=== PATIENT | male | born 1980 | race Caucasian/White ===

== ENCOUNTER 2017-02-14 08:18 | Outpatient (CLI) | payer OTHER ==
--- NOTE | 2017-02-14 16:56 | MRI Report ---
EXAM: MRI LUMBAR SPINE WITHOUT CONTRAST EXAM DATE: 02/14/2017 09:45 AM. CLINICAL HISTORY: LOW BACK PAIN. COMPARISON: None. TECHNIQUE: Multiplanar, multisequence T1-weighted and fluid-sensitive sequences of the lumbar spine f rom T12 to S1 without contrast. Other: None. FINDINGS: Spinal Cord: The conus terminates at L1. No signal abnormality in the visualized spinal cord. Alignment: Normal. No scoliosis or spondylolisthesis. Bone Marrow: Five [id number] lumbar vertebral bodies are assumed. No gross fractures or bone les ions. No bone marrow edema. Disk Levels/Facets: T12-L1: Unremarkable. L1-L2: Unremarkable. L2-L3: Unremarkable. L3-L4: Mild bilateral facet arthropathy. L4-L5: Mild to moderate bilateral degenerative facet arthropathy. L5-S1: Mild left-sided degenerative facet arthropathy. Musculature: Normal. No edema or fatty atrophy. Other: Unremarkable. IMPRESSION: 1. Mild lower lumbar degenerative facet arthropathy, more pronounced at the L4-L5 level. 2. No lumbar central canal or foraminal stenosis. Comment: The following findings are so common in adults without low back pain that while we report th eir presence, they must be interpreted with caution and in the context of the clinical situation. (Re marika Parekhk et al, Spine 2001) Prevalence of findings in patients without low back pain: Disk degeneration (any evidence): 92% Disk desiccation/T2 signal loss: 83% Disk height loss: 56% Disk bulge: 64% Disk protrusion: 32% Annular tear/high intensity zone: 38% [facility] Referring Provider Line: [phone] SITE ID: [id number]
--- NOTE | 2017-02-16 09:23 | MRI Report ---
EXAM: MRI THORACIC SPINE WITHOUT CONTRAST EXAM DATE: 02/14/2017 09:00 a.m. CLINICAL HISTORY: Constant mid thoracic pain. COMPARISONS: Lumbar MRI performed the same date. TECHNIQUE: Multiplanar, multisequence T1-weighted and fluid-sensitive sequences of the thoracic spine from C7 to L1 without contrast. Other: None. FINDINGS: Spinal Cord: No signal abnormality in the visualized spinal cord. Alignment: Normal alignment. No spondylolisthesis. Bone Marrow: No gross fractures or bone lesion. No bone marrow edema. Disk Levels/Facets: C7-T1: Unremarkable. T1-T2: Unremarkable. T2-T3: Unremarkable. T3-T4: Small broad-based central disk protrusion and moderate right-sided degenerative facet arthropa thy. No stenosis. T4-T5: Unremarkable. T5-T6: Unremarkable. T6-T7: Unremarkable. T7-T8: Unremarkable. T8-T9: Unremarkable. T9-T10: Unremarkable. T10-T11: Unremarkable. T11-T12: Unremarkable. T12-L1: Unremarkable. Musculature: Normal. No edema or fatty atrophy. Other: The visualized lungs, mediastinum, and abdominal cavity are unremarkable. IMPRESSION: 1. Tiny disk protrusion and moderate left-sided facet arthropathy at the T3-T4 level. [facility] Referring Provider Line: [phone] SITE ID: [id number]
== END 2017-02-14 08:19 | disposition home or self-care (01) ==
LOC: DI 08:18
PROVIDERS: ATTEND Student in an Organized Health Care Education/Training Program
DX: M51.24 Other intervertebral disc displacement, thoracic region (principal); M47.9 Spondylosis, unspecified
CPT/HCPCS: 72146; 72148

== ENCOUNTER 2021-08-01 10:01 | Outpatient (CLI) | payer OTHER ==
[2021-08-01 10:42] VITALS: BP 134/73
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
== END 2021-08-01 10:02 | disposition home or self-care (01) ==
LOC: SC 10:01
PROVIDERS: ATTEND Nurse Practitioner Family
DX: R06.83 Snoring (principal); R06.81 Apnea, not elsewhere classified; G47.8 Other sleep disorders; R51.9 Headache, unspecified; R41.89 Other symptoms and signs involving cognitive functions and awareness; G47.10 Hypersomnia, unspecified; E66.9 Obesity, unspecified; Z68.31 Body mass index [BMI] 31.0-31.9, adult
CPT/HCPCS: 99203; 99212

== ENCOUNTER 2021-08-09 08:22 | Outpatient (CLI) | payer OTHER | END 2021-08-09 08:23 | disposition home or self-care (01) | LOC: SC 08:22 | PROVIDERS: ATTEND Nurse Practitioner Family | DX: G47.33 Obstructive sleep apnea (adult) (pediatric) (principal) | CPT/HCPCS: 95806 ==

== ENCOUNTER 2021-08-21 16:17 | Outpatient (CLI) | payer OTHER ==
--- NOTE | 2021-08-21 17:08 | SLEEP CARE CONSULTATION ---
Information from patient questionnaire entered by Cecilia Becker MA. I have reviewed and concur with the information entered by Cecilia Becker MA. This document represents the service I personally performed and the decisions made by , Cassie Saez ARNP. History of Present Illness Service Date and Time: 08/21/2021 1617 Initial [place] Sleepiness Scale score: 20 (2021) Current [place] Sleepiness Scale score: 17 (08/2021) Additional HPI information: CECE GARCIA returns for follow up and results of the recently performed home sleep study. I explained the pathophysiology behind obstructive sleep apnea. We then spent quite a bit of time discussing different treatment options. For mild obstructive sleep apnea, surgery and oral appliance are alternatives to nasal CPAP therapy but in moderate or severe cases, nasal CPAP is the most effective and reliable treatment. Because apnea is primarily in supine position, then positional management therapy could be effective. Methods discussed such as positioning with pillows, using a T-shirt with tennis balls in the back, and shown commercial products that have a pillow format on back to prevent supine sleep. I reviewed the impact of weight changes on sleep apnea and strongly recommended losing weight. After some discussion, the patient opted to go with the nasal CPAP therapy. Nasal autoCPAP set at 4-15 cmH20 will be ordered with rationale explained. A manual titration study will be ordered if unable to find optimal pressure with office adjustments. I explained how CPAP machine works and what to expect when using the machine. Using CPAP every night in order to get used to it was emphasized. Patient advised to put CPAP mask on before getting into bed so as not to fall asleep without CPAP. To assist acclimation to CPAP use, it could also be used for a short time during day while reading or watching TV. The patient was instructed to call the CPAP supplier to discuss any mechanical problem that may occur. If the mask given is uncomfortable or is difficult to keep on through the night even with adjustment, contact the CPAP supplier as many will replace with another mask style if notified before 30 days. If snoring or perceives is not getting enough air or too much air from the machine, notify this office. [facility] patient education PAP tips reviewed and given to patient. Patient does not drink alcohol. Patient was cautioned about risks of drowsy driving until sleepiness symptoms resolve. Sleep Study - Results Type of Sleep Study: Home sleep study (F/U HOME STUDY) Prior sleep studies: No Polysomnography/Home Sleep Study results: Physician Impression: The quality of the study is good. The length of the study is adequate (> 240 minutes). Please also see the tabulated and graphic data. 1. Obstructive Sleep Apnea-Hypopnea (ICD-10 G47.33), mild, with an AHI of 5.1/hr and frantz SaO2 of 91%. During the study, the patient had 16 apneas (16 obstructive, 0 central, 0 mixed) and 24 hypopneas. The longest episode lasted 79.0 seconds. The patient did not sleep supine during this study. Allergies and Home Medications Home medication list reviewed: Yes (no changes) Review of Systems Review of systems same as previous: Yes (no changes) Physical Exam Vital signs obtained and entered by: ANDREWS STILL Blood Pressure: 128/79 (RIGHT, PULSE 86, RESP 16) Cuff size: wrist Heart Rate: 90 O2 Saturation: 96 (PAPER) Height: 5 ft 11 in Weight: 210 lb (W CLOTHES) Body Mass Index: 29.2 BMI Classification: Overweight Impression and Plan 1. Obstructive Sleep Apnea-Hypopnea Syndrome, mild, with lowest oxygen saturation of 91%. Obviously this is the cause of the patients symptoms of unrefreshed sleep, and excessive daytime sleepiness. Positive pressure therapy could benefit anxiety and mood disorder (PTSD). As mentioned above, the patient will be started on nasal autoCPAP therapy with pressure set at 4-15 cmH2O. A manual titration study will be completed if unable to find optimal treatment pressure with office adjustments. Compliance guidelines also reviewed. A copy of compliance guidelines will be given for reference at check out. * Nasal auto CPAP therapy, pressure at 4-15 cm H2O. * Attempt to lose weight. * Avoid alcohol consumption near bedtime. * Avoid supine sleep until using CPAP. * The patient is again cautioned about driving until sleepiness completely resolves. * Return one month after CPAP obtained. I will assess response to therapy and compliance at that time. Counseling Topics: Weight loss health impact Visit Type: In Office Time Spent with Patient (minutes): 20 Provider Statement: I spent 100% of the Face to Face Visit with the patient with greater than 50% spent counseling the patient and coordination of care.
[2021-08-21 17:09] VITALS: BP 128/79
== END 2021-08-21 16:18 | disposition home or self-care (01) ==
LOC: SC 16:17
PROVIDERS: ATTEND Nurse Practitioner Family
DX: G47.33 Obstructive sleep apnea (adult) (pediatric) (principal); E66.3 Overweight; Z68.29 Body mass index [BMI] 29.0-29.9, adult
CPT/HCPCS: 99212; 99213

== ENCOUNTER 2021-10-23 10:09 | Outpatient (CLI) | payer OTHER ==
[2021-10-23 11:07] VITALS: BP 125/73
--- NOTE | 2021-10-23 11:07 | SLEEP CARE CONSULTATION ---
Information from patient questionnaire entered by Cecilia Becker MA. I have reviewed and concur with the information entered by Cecilia Becker MA. This document represents the service I personally performed and the decisions made by , Cassie Saez ARNP. History of Present Illness Service Date and Time: 10/23/2021 1009 Previous diagnosis: Mild, Obstructive Sleep Apnea-Hypopnea Syndrome AHI: 5.1 (in 2021) Reason for follow up: first compliance (SET UP DATE 09/17/21, RESMED, ) Equipment type: CPAP Equipment obtained from: Other ([facility]; got inital supplies) Mask style: Full face Mask brand: Resmed (AirFit F20) Backup mask available: Yes (other mask) Last cushion change: 1 month Prior sleep studies: No Type of Sleep Study: Home sleep study (F/U HOME STUDY) HPI additional information: CECE GARCIA was diagnosed to have mild, AHI 5.1, obstructive sleep apnea- hypopnea syndrome and returned today for CPAP therapy first compliance (ResMed) follow-up. Sleep Study - Results Type of Sleep Study: Home sleep study (F/U HOME STUDY) Prior sleep studies: No CPAP Compliance Data - Data Reviewed with Patient Average duration of nightly device use: 7 HOURS 2 MINUTES Compliance rate %: 90 (30 days) Current pressure setting (cmH2O): 5-15 (median 6.5, avg 8.8, max 10.2) Average residual AHI: 0.3 Central apnea: .1 Obstructive apnea: .2 Average large leak: 8.8 Subjective Patient concerns: reports: nasal congestion (COULD BE ALLERGIES,). denies: aerophagia, mask discomfort, air blowing in eyes, mask leak noise, condensation in mask/hose, dry mouth, nose, throat, epistaxis, other Observed to snore while using device: No Current pressure setting perceived as: comfortable On therapy, patient: reports: sleeping better, awakening more refreshed, being more awake and alert during the day, more rested overall. denies: drowsiness while driving Initial [place] Sleepiness Scale score: 20 (2021) Current [place] Sleepiness Scale score: 2 (10/2021) Allergies and Home Medications Home medication list reviewed: Yes (no changes) Review of Systems Review of systems same as previous: Yes (no changes) Physical Exam Vital signs obtained and entered by: ANDREWS STILL Blood Pressure: 125/73 (RIGHT, PULSE 82, RESP 20, ) Cuff size: wrist Heart Rate: 76 O2 Saturation: 97 (PAPER MASK) Height: 5 ft 11 in Weight: 238 lb (CLOTHES) Weight change since last visit: TRYING TO LOOSE, BACK TO THE GYM, Body Mass Index: 33.2 BMI Classification: Obese Impression and Plan 1. Obstructive Sleep Apnea-Hypopnea Syndrome, mild, with good treatment compliance and good apnea control. On CPAP therapy, the patient has better sleep quality and is more rested overall. He states he has more energy during the day and a lot less stress around going to bed. His is able to sleep better too because he is not snoring and keeping her awake. Patient's apnea severity and rationale for treatment to reduce apnea, improve sleep quality and reduce cardiovascular and cerebrovascular events was reviewed. I also reviewed the benefit of consistent device use of CPAP for anxiety and mood disorder (PTSD). Patient denies problems with oral dryness, epistaxis, skin irritation or aerophagia. He has had some nasal congestion due to allergies. Nasal congestion can be reduced with increasing the CPAP humidity. The heated hose can be adjusted higher if condensation with higher humidity setting. Saline nasal spray sample can be obtained OTC and used prior to CPAP to clear nasal secretions and wash off any nasal allergens to facilitate nasal breathing. He voiced understanding. 2. Obesity, unspecified. Patient has gained weight. Currently patients BMI is 33.2. Obesity increases the risk of apnea, CPAP pressure requirements and overall health risks especially cardiovascular and diabetes. Thus patient is advised to lose weight. Weight loss can be done with reducing portion size, reducing refined foods and balancing content with vegetables, fruit and whole grain foods. In addition, patient encouraged to get regular exercise. * Change auto CPAP pressure to 6-10 cmH2O * Notify me if snoring with mask or feeling that the pressure is too much or too little * Attempt to lose weight * Call this office if any problems using CPAP * Return for follow up in 1-2 months, or sooner if concerns arise Counseling Topics: Weight loss health impact Visit Type: In Office Location of Provider: Office Time Spent with Patient (minutes): 20 Provider Statement: I spent 100% of the Face to Face Visit with the patient with greater than 50% spent counseling the patient and coordination of care.
== END 2021-10-23 10:10 | disposition home or self-care (01) ==
LOC: SC 10:09
PROVIDERS: ATTEND Nurse Practitioner Family
DX: G47.33 Obstructive sleep apnea (adult) (pediatric) (principal); E66.9 Obesity, unspecified; Z68.33 Body mass index [BMI] 33.0-33.9, adult
CPT/HCPCS: 99212; 99213

== ENCOUNTER 2022-04-08 10:56 | Outpatient (CLI) | payer OTHER ==
[2022-04-08 11:29] VITALS: BP 130/88
--- NOTE | 2022-04-08 11:29 | SLEEP CARE CONSULTATION ---
Information from patient questionnaire entered by Brenda Alba. I have reviewed and concur with the information entered by Brenda Alba. This document represents the service I personally performed and the decisions made by me, Cassie Saez ARNP. History of Present Illness Service Date and Time: 04/08/2022 1056 Previous diagnosis: Mild, Obstructive Sleep Apnea-Hypopnea Syndrome AHI: 5.1 Reason for follow up: three month (LAST SEEN 12-27) Equipment type: CPAP Equipment obtained from: Other ([facility]; getting supplies as needed) Mask style: Full face Mask brand: Resmed (F20) Backup mask available: Yes (other mask) Last cushion change: 2 days Prior sleep studies: No Type of Sleep Study: Home sleep study (F/U HOME STUDY) HPI additional information: CECE GARCIA was diagnosed to have mild, AHI 5.1, obstructive sleep apnea- hypopnea syndrome and returned today for CPAP therapy three month follow-up. Sleep Study - Results Type of Sleep Study: Home sleep study (F/U HOME STUDY) Prior sleep studies: No CPAP Compliance Data - Data Reviewed with Patient Average duration of nightly device use: 7 HRS, 25 MIN Compliance rate %: 97 (01/04/2022-04/03/2022; 89/90 days used) Current pressure setting (cmH2O): 6-10 Average residual AHI: 0.2 Subjective Patient concerns: denies: aerophagia, mask discomfort, air blowing in eyes, mask leak noise, condensation in mask/hose, nasal congestion, dry mouth, nose, throat, epistaxis Observed to snore while using device: No Current pressure setting perceived as: comfortable On therapy, patient: reports: sleeping better, awakening more refreshed, being more awake and alert during the day, more rested overall. denies: drowsiness while driving Initial [place] Sleepiness Scale score: 20 (2021) Current [place] Sleepiness Scale score: 2 (04/08/22) Allergies and Home Medications Drug allergies reviewed: Yes (NKDA) Home medication list reviewed: Yes (no changes) Review of Systems Review of systems same as previous: Yes (no changes) Physical Exam Vital signs obtained and entered by: BRENDA Posada MA Blood Pressure: 130/88 (left arm) Cuff size: regular Heart Rate: 89 O2 Saturation: 96 Height: 5 ft 11 in Weight: 246 lb 3.2 oz Weight change since last visit: 36 lb gain Body Mass Index: 34.3 BMI Classification: Obese Impression and Plan 1. Obstructive Sleep Apnea-Hypopnea Syndrome, mild, with good treatment compliance and good apnea control. On CPAP therapy, the patient has better sleep quality and is more rested overall. Patient is using a ResMed F 20 fullface mask. He states sometimes he does get the tubing wrapped around his neck. He would like to try one with the hose at the top of his head. I advised him that he could do that when he is next eligible for headgear replacement or he could purchase one online to try before he orders one through his DME. He voiced understanding and agreement. Patient has significant improvement of their sleep apnea and are satisfied with current CPAP therapy. Patient denies problems with oral dryness, nasal congestion, epistaxis, skin irritation or aerophagia. Patient's apnea severity and rationale for treatment to reduce apnea, improve sleep quality and reduce cardiovascular and cerebrovascular events was reviewed. I also reviewed the benefit of consistent device use of CPAP for anxiety and PTSD. 2. Obesity, unspecified. Currently patients BMI is 34.3. Patient has gained some weight. Obesity increases the risk of apnea, CPAP pressure requirements and overall health risks especially cardiovascular and diabetes. Thus patient is advised to lose weight. Weight loss can be done with reducing portion size, reducing refined foods and balancing content with vegetables, fruit and whole grain foods. In addition, patient encouraged to get regular exercise. * Continue auto CPAP pressure at 6-10 cmH2O * Notify me if snoring with mask or feeling that the pressure is too much or too little * Attempt to lose weight * Call this office if any problems using CPAP * Return for follow up in 1 year, or sooner if concerns arise Counseling Topics: Spare mask, Weight loss health impact Visit Type: In Office Time Spent with Patient (minutes): 20 Provider Statement: I spent 100% of the Face to Face Visit with the patient with greater than 50% spent counseling the patient and coordination of care.
== END 2022-04-08 10:57 | disposition home or self-care (01) ==
LOC: SC 10:56
PROVIDERS: ATTEND Nurse Practitioner Family
DX: G47.33 Obstructive sleep apnea (adult) (pediatric) (principal); E66.9 Obesity, unspecified; Z68.34 Body mass index [BMI] 34.0-34.9, adult
CPT/HCPCS: 99212; 99213

== ENCOUNTER 2023-03-14 14:49 | Emergency (ER) | payer OTHER ==
[2023-03-14] MEDS ORDERED: lidocaine 1% 20 ML MDV SUBQ ONE (16:03)
--- NOTE | 2023-03-14 17:20 | CT Report ---
PROCEDURE: HEAD WO INDICATIONS: concussion, headache, nausea memory loss TECHNIQUE: Noncontrast 4.5 mm thick angled axial sections acquired from the foramen magnum to the vertex. For r adiation dose reduction, the following was used: automated exposure control, adjustment of mA and/or kV according to patient size. COMPARISON: None. FINDINGS: CSF spaces: Basal cisterns are patent. No extra-axial fluid collections. Ventricles are normal in size and shape. Brain: No midline shift. No intracranial masses or hemorrhage. Salazar-white matter interface is norm al. Skull and face: Calvarium and visualized facial bones are intact, without suspicious lesions. Sinuses: Mucosal thickening left maxillary sinus without air-fluid level IMPRESSION: No acute intracranial pathology. Reviewed by: Marty Hobbs MD on 03/14/2023 5:19 PM PDT Approved by: Marty Hobbs MD on 03/14/2023 5:19 PM PDT Station ID: [id number]
--- NOTE | 2023-03-14 18:09 | ED Physician Documentation ---
PD HPI HEAD INJURY - Stated complaint Stated Complaint: HEAD INJ - Chief complaint Chief Complaint: Laceration - History obtained from History obtained from: Patient, Family - History of Present Illness Mechanism of head injury: Blow Where head injury occurred: Home Timing - onset: Today Location of injury: Front, Top Quality of pain: Pain Associated symptoms: Nausea / vomiting (transient). 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 He somehow ended up striking himself in the top of his head he is uncertain if he had any loss of consciousness. He is not sure what he did with the post pizza delivery driver. He has lacerations to his scalp and comes into the emergency department for evaluation and treatment. He did have some transient nausea and he has had some more nausea when he went to stand up. He has a mild headache he has not had difficulty concentrating or dizziness. Review of Systems Constitutional: denies: Fever Eyes: denies: Decreased vision Ears: denies: Ear pain Nose: denies: Congestion Throat: denies: Sore throat Respiratory: denies: Cough GI: reports: Nausea. denies: Vomiting : denies: Dysuria, Frequency PD PAST MEDICAL HISTORY - Present Medications Home Medications: Ambulatory Orders Medication Instructions Recorded Confirmed Sertraline HCl 100 mg PO DAILY 03/14/23 03/14/23 - Allergies Allergies/Adverse Reactions: Allergies Allergy/AdvReac Type Severity Reaction Status Date / Time No Known Drug Allergies Allergy Verified 03/14/23 15:00 PD ED PE NORMAL - Vitals Vital signs reviewed: Yes (hypertensive ) - General General: Alert and oriented X 3, No acute distress, Well developed/nourished - HEENT HEENT: PERRL, EOMI, Other (2 lacerations to the anterior middle scalp. One is 4.5cm deeper and without FB. The other is more superficial 3.5cm and without fb. ) - Neck Neck: Supple, no meningeal sign, No bony TTP - Respiratory Respiratory: No respiratory distress - Derm Derm: Normal color, Warm and dry, No rash - Extremities Extremities: No deformity, No edema - Neuro Neuro: Alert and oriented X 3, continuous improvement analyst 2-12 intact, No motor deficit, No sensory deficit, Normal speech Eye Opening: Spontaneous Motor: Obeys Commands Verbal: Oriented GCS Score: 15 - Psych Psych: Normal mood, Normal affect Results - Vitals Vitals: Vital Signs - 24 hr 03/14/23 03/14/23 03/14/23 15:02 15:58 18:23 Temperature 36.6 C 36.8 C 36.0 C L Heart Rate 85 86 74 Respiratory 16 18 16 Rate Blood Pressure 161/83 H 170/80 H 138/83 H O2 Saturation 97 98 94 Oxygen O2 Source Room air - Rads (name of study) CT head without Relevant Findings:: Prelim report reviewed (Impression: No acute intracranial pathology.), EMP independent interpretation of test, See rad report Procedures - Laceration (location) Scalp Length in cm: 8 Wound type: Linear, Into subcut fat, Clean Neurovascular status: Sensory intact, Motor intact, Vascular intact Anesthesia: Lidocaine 1% Wound preparation: Hibiclens, Irrigated copiously NS, Wound explored, To the base Skin layer closure: [place] Other: Patient tolerated well, No complications, Neurovascular intact, Dressing applied, Tetanus UTD PD Medical Decision Making - ED course Complexity details: considered differential, d/w patient, d/w family ED course: Ricci Fox is a 42-year-old male who lacerated his scalp with a post pizza delivery driver and he had some transient nausea following this as well as headache. He has an unknown loss of consciousness. A CT scan of the head was obtained. This was unremarkable. His wounds were then attended to with lidocaine and cleaning and stapling. Patient tolerated this well. Departure - Departure Disposition: 01 Home, Self Care Clinical Impression: Scalp laceration Qualifiers: Encounter type: initial encounter Qualified Code(s): S01.01XA - Laceration without foreign body of scalp, initial encounter Concussion Qualifiers: Encounter type: initial encounter Loss of consciousness presence/duration: unknown LOC status Qualified Code(s): S06.0XAA - Concussion with loss of consciousness status unknown, initial encounter Condition: Stable Instructions: ED Concussion, ED Laceration Scalp Stitch Or Stap Follow-Up: [facility] Guilhermedoug Mackenzie [Provider Group] Comments: Ricci, today looks like you have a pretty good laceration to your scalp and the fernando will need to be removed in about 10 days. A follow-up here or with or with your primary care doctor is indicated as it requires a special device to remove the fernando.Your concussion symptoms now seem mild and we are expecting no problems with your concussion. You did have CT scanning of his head done today which did not demonstrate any intracranial abnormality. Discharge Date/Time: 03/14/23 18:38
[2023-03-14 18:27] VITALS: BP 138/83; O2SAT 94
== END 2023-03-14 18:38 | disposition home or self-care (01) ==
LOC: ED 14:49
DX: S01.01XA Laceration without foreign body of scalp, initial encounter (principal); S06.0XAA Concussion with loss of consciousness status unknown, initial encounter; W20.8XXA Other cause of strike by thrown, projected or falling object, initial encounter; Y93.89 Activity, other specified
CPT/HCPCS: 12004; 99282; 99284

== ENCOUNTER 2023-03-23 17:47 | Emergency (ER) | payer OTHER ==
[2023-03-23 17:54] VITALS: BP 150/87; O2SAT 97
--- NOTE | 2023-03-23 19:18 | ED Physician Documentation ---
History of Present Illness - Stated complaint Stated Complaint: STAPLE REMOVAL - Chief complaint Chief Complaint: Wound PD PAST MEDICAL HISTORY - Past Medical History Past Medical History: No - Present Medications Home Medications: Ambulatory Orders Medication Instructions Recorded Confirmed Sertraline HCl 100 mg PO DAILY 03/14/23 03/14/23 - Allergies Allergies/Adverse Reactions: Allergies Allergy/AdvReac Type Severity Reaction Status Date / Time No Known Drug Allergies Allergy Verified 03/14/23 15:00 - Social History Does the pt smoke?: No Smoking Status: Never smoker Results - Vitals Vitals: Vital Signs - 24 hr 03/23/23 17:49 Temperature 36.5 C Heart Rate 97 Respiratory 16 Rate Blood Pressure 150/87 H O2 Saturation 97 Oxygen O2 Source Room air Departure - Departure
--- NOTE | 2023-03-23 19:50 | ED Physician Documentation ---
History of Present Illness - Stated complaint Stated Complaint: STAPLE REMOVAL - Chief complaint Chief Complaint: Wound - Additonal information Additional information: Here for staple removal after laceration sustained 10 days ago. 10 sutures were placed. Wound has healed well. No headaches nausea or vomiting. Review of Systems Skin: reports: Laceration (s) PD PAST MEDICAL HISTORY - Past Medical History Past Medical History: No - Present Medications Home Medications: Ambulatory Orders Medication Instructions Recorded Confirmed Sertraline HCl 100 mg PO DAILY 03/14/23 03/14/23 - Allergies Allergies/Adverse Reactions: Allergies Allergy/AdvReac Type Severity Reaction Status Date / Time No Known Drug Allergies Allergy Verified 03/14/23 15:00 - Social History Does the pt smoke?: No Smoking Status: Never smoker PD ED PE NORMAL - HEENT HEENT: Other (Vertical lacerations wounds on the top of the head well approximated with some superficial scabbing surrounding. No erythema or drainage. ) Results - Vitals Vitals: Vital Signs - 24 hr 03/23/23 17:49 Temperature 36.5 C Heart Rate 97 Respiratory 16 Rate Blood Pressure 150/87 H O2 Saturation 97 Oxygen O2 Source Room air PD Medical Decision Making - ED course Complexity details: reviewed results, re-evaluated patient, d/w patient ED course: 43-year-old male here for staple removal from the wound in his head placed 10 days ago. Wound is healed well without secondary signs of infection. I personally remove the 10 fernando without complication. He is discharged home with usual emergent return precautions discussed Departure - Departure Disposition: 01 Home, Self Care Clinical Impression: Encounter for staple removal Condition: Stable Comments: We removed 10 fernando from the wounds in your head. You can shower normally but I would recommend applying antibiotic ointment over the scab twice daily. This will help gently loosen away over time. Forms: PCP List
== END 2023-03-23 20:06 | disposition home or self-care (01) ==
LOC: ED 17:47
DX: Z48.02 Encounter for removal of sutures (principal); S01.01XD Laceration without foreign body of scalp, subsequent encounter; X58.XXXD Exposure to other specified factors, subsequent encounter
CPT/HCPCS: 99281; 99282

== ENCOUNTER 2023-07-08 10:44 | Outpatient (CLI) | payer OTHER ==
--- NOTE | 2023-07-08 11:16 | Sleep Patient Instructions ---
Sleep Center Visit Summary - Patient Visit Information Reason for Visit: Annual Visit - Patient Instructions Additional Instructions: You will continue with CPAP therapy with pressure set at 6-10 cmH2O. A supply prescription will be updated with your DME. We encourage you to continue to try to lose weight. Please follow up with the sleep care office in 1 year. - Clinic Information Contact: [facility] [address] [place] [address] [email or web address] T: [phone]
--- NOTE | 2023-07-08 11:21 | SLEEP CARE CONSULTATION ---
Information from patient questionnaire entered by Brenda Alba. I have reviewed and concur with the information entered by Brenda Alba. This document represents the service I personally performed and the decisions made by me, Cassie Saez ARNP. History of Present Illness Service Date and Time: 07/08/2023 1044 Previous diagnosis: Mild, Obstructive Sleep Apnea-Hypopnea Syndrome AHI: 5.1 Reason for follow up: annual (LAST SEEN 04/2022) Equipment type: CPAP (RESMED 11, s/u 09/2021) Equipment obtained from: Other ([facility]; getting supplies as needed) Mask style: Full face Mask brand: Resmed (AirFit F20, medium cushion) Backup mask available: Yes (old mask) Last cushion change: couple weeks Prior sleep studies: No Type of Sleep Study: Home sleep study (F/U HOME STUDY) HPI additional information: CECE GARCIA was diagnosed to have mild, AHI 5.1, obstructive sleep apnea- hypopnea syndrome and returned today for CPAP therapy annual follow-up. Sleep Study - Results Type of Sleep Study: Home sleep study (F/U HOME STUDY) Prior sleep studies: No CPAP Compliance Data - Data Reviewed with Patient Average duration of nightly device use: 7 HRS 5 MINS Compliance rate %: 98 (-07/05/23; 365/365 days used ) Current pressure setting (cmH2O): 6-10 Average residual AHI: 0.3 Central apnea: 0 Obstructive apnea: 0.2 Hypopnea: 0.1 Average large leak: 0.3 L/min Subjective Patient concerns: reports: air blowing in eyes (just needs mask adjustment), mask leak noise (just needs mask adjustment). denies: aerophagia, mask discomfort, condensation in mask/hose, nasal congestion, dry mouth, nose, throat, epistaxis Observed to snore while using device: No Current pressure setting perceived as: comfortable On therapy, patient: reports: sleeping better, awakening more refreshed, being more awake and alert during the day, more rested overall. denies: drowsiness while driving Initial Ferguson Sleepiness Scale score: 20 (2021) Current Ferguson Sleepiness Scale score: 9 (07/08/23) Allergies and Home Medications Known drug allergies: No Drug allergies reviewed: Yes Home medication list reviewed: Yes (Duloxetine 30 mg daily) Allergy and home medication list: Allergies No Known Drug Allergies Allergy (Verified 05/06/23 09:17) Review of Systems Review of systems same as previous: Yes (NO CHANGE) Physical Exam Vital signs obtained and entered by: BRENDA Posada MA Blood Pressure: 133/94 (LEFT ARM) Cuff size: regular Heart Rate: 82 O2 Saturation: 96 Height: 5 ft 11 in Weight: 274 lb 12.8 oz Weight change since last visit: 32 lb gain Body Mass Index: 38.3 BMI Classification: Obese Impression and Plan 1. Obstructive Sleep Apnea-Hypopnea Syndrome, mild, with good treatment compliance and good apnea control. On CPAP therapy, the patient has better sleep quality and is more rested overall. Patient has significant improvement of their sleep apnea and is satisfied with current CPAP therapy. Patient denies problems with oral dryness, nasal congestion, epistaxis, skin irritation or aerophagia. Patient's apnea severity and rationale for treatment to reduce apnea, improve sleep quality and reduce cardiovascular and cerebrovascular events was reviewed. I also reviewed the benefit of consistent device use of CPAP for anxiety and PTSD. 2. Obesity, unspecified. Currently patients BMI is 38.3. Obesity increases the risk of apnea, CPAP pressure requirements and overall health risks especially cardiovascular and diabetes. Thus patient is advised to lose weight. * Continue auto CPAP pressure at 6-10 cmH2O * Update supply prescription * Notify me if snoring with mask or feeling that the pressure is too much or too little * Attempt to lose weight * Call this office if any problems using CPAP * Return for follow up in 12 months, or sooner if concerns arise Counseling Topics: Spare mask, Weight loss health impact Prescriptions: Device supplies Follow up with Sleep Care in: 1 year Visit Type: In Office Time Spent with Patient (minutes): 20 Provider Statement: I spent 100% of the Face to Face Visit with the patient with greater than 50% spent counseling the patient and coordination of care.
[2023-07-08 11:24] VITALS: BP 133/94; O2SAT 96
== END 2023-07-08 10:45 | disposition home or self-care (01) ==
LOC: SC 10:44
PROVIDERS: ATTEND Nurse Practitioner Family
DX: G47.33 Obstructive sleep apnea (adult) (pediatric) (principal); E66.9 Obesity, unspecified; Z68.38 Body mass index [BMI] 38.0-38.9, adult
CPT/HCPCS: 99212; 99213